=== PATIENT | female | born 1950 | race Caucasian/White ===

== ENCOUNTER 2023-09-02 08:20 | Emergency (ER) | payer MEDICARE, BC, OTHER ==
[2023-09-02] MEDS ORDERED: LIDOCAINE W/EPINEPHRINE 1% 20ML VIAL SC ONE (08:40)
[2023-09-02 09:23] VITALS: BP 163/84; TEMP 97.6; O2SAT 95
== END 2023-09-02 09:33 | disposition home or self-care (01) ==
LOC: M ED 08:20
DX: K64.5 Perianal venous thrombosis (principal); Z88.5 Allergy status to narcotic agent; Z91.013 Allergy to seafood